=== PATIENT | female | born 1960 | race Caucasian/White ===

== ENCOUNTER 2016-10-24 15:21 | Emergency (ER) | payer OTHER ==
[~2016-10-24] VITALS: Ht 165.1 cm; Wt 65.6 kg
[~2016-10-24 15:21] MED LIST: AZITHROMYCIN250 MG PO; ESCITALOPRAM OX20 MG PO; LEXAPRO5 MG PO; MOBIC7.5 MG PO; PERCOCET 5/31 TABLET PO; PROAIR HFA8.5 GM IH; PROVENTIL HFA6.7 GM IH; ROBITUSSIN AC,T10 ML PO; TOPAMAX25 MG PO; TOPIRAMATE100 MG PO; ZITHROMAX Z-PA250 MG PO
[2016-10-24] MEDS ORDERED: CLEOCIN150 MG PO (17:29)
[2016-10-24] MEDS ORDERED: TRAMADOL HCL50 MG PO (17:29)
[2016-10-24 17:44] VITALS: BP 127/87
== END 2016-10-24 17:57 | disposition home or self-care (01) ==
LOC: EME 15:21 → EXP 15:21
PROC: 0H97XZZ Drainage of Abdomen Skin, External Approach (ICD-10-PCS; principal; 2016-10-24)
DX: S30.861A Insect bite (nonvenomous) of abdominal wall, initial encounter (principal); L08.9 Local infection of the skin and subcutaneous tissue, unspecified; L02.214 Cutaneous abscess of groin; W57.XXXA Bitten or stung by nonvenomous insect and other nonvenomous arthropods, initial encounter; F17.210 Nicotine dependence, cigarettes, uncomplicated; J44.9 Chronic obstructive pulmonary disease, unspecified; F32.9 Major depressive disorder, single episode, unspecified; Z88.6 Allergy status to analgesic agent
CPT/HCPCS: 99281; 99283; J3010